=== PATIENT | male | born 1995 | race Hispanic/Latino ===

== ENCOUNTER 2023-08-12 01:02 | Emergency (ER) | payer OTHER, SELFPAY | END 2023-08-12 01:22 | LOC: NAV ERS 01:02 | DX: S00.93XA Contusion of unspecified part of head, initial encounter (principal); V58.0XXA Driver of pick-up truck or van injured in noncollision transport accident in nontraffic accident, initial encounter; W22.11XA Striking against or struck by driver side automobile airbag, initial encounter; Y93.89 Activity, other specified; Y92.410 Unspecified street and highway as the place of occurrence of the external cause | CPT/HCPCS: 99283 ==